=== PATIENT | female | born 1980 | race Caucasian/White ===

== ENCOUNTER 2021-11-10 11:21 | Emergency (ER) | payer SELFPAY | END 2021-11-10 13:02 | disposition home or self-care (01) | LOC: ERS 11:21 | DX: I88.9 Nonspecific lymphadenitis, unspecified (principal); F17.210 Nicotine dependence, cigarettes, uncomplicated | CPT/HCPCS: 99283 ==

== ENCOUNTER 2021-11-12 17:14 | Emergency (ER) | payer SELFPAY | END 2021-11-12 21:19 | disposition left against medical advice (07) | LOC: ERS 17:14 | DX: Z53.21 Procedure and treatment not carried out due to patient leaving prior to being seen by health care provider (principal) ==